=== PATIENT | female | born 2000 | race African-American/Black ===

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

== ENCOUNTER 2022-04-14 19:57 | Emergency (ER) | payer OTHER | END 2022-04-14 22:21 | LOC: ERS 19:57 | DX: Z53.21 Procedure and treatment not carried out due to patient leaving prior to being seen by health care provider (principal) ==

== ENCOUNTER 2023-02-01 22:58 | Emergency (ER) | payer OTHER, SELFPAY ==
[2023-02-01] MEDS ORDERED: Ketorolac Tromethamine 30 MG/ML VIAL ONE (23:58)
== END 2023-02-02 00:20 | disposition home or self-care (01) ==
LOC: ERS 22:58
DX: K04.7 Periapical abscess without sinus (principal); F17.290 Nicotine dependence, other tobacco product, uncomplicated
CPT/HCPCS: 96372; 99282; J1885